=== PATIENT | female | born 1950 | race Caucasian/White ===

== ENCOUNTER 2019-12-18 11:04 | Outpatient (CLI) | payer MEDICARE, OTHER, SELFPAY ==
--- NOTE | 2019-12-18 11:09 | MM_ITS ---
WS: [id number] Bilateral screening digital mammogram, 12/18/2019 Clinical Data: SCREENING Comparison: 09/15/2018, 02/05/2018, 07/04/2017, 06/27/2017, 05/18/2016, 02/08/2015, 01/18/2014, 08/10/2011, , 04/29/2008. Findings: The breast parenchymal pattern shows fibroglandular tissue. No spiculated masses or clustered calcifi cations are seen. There are no secondary signs of carcinoma. MM/[id number] Impression: 1. Negative bilateral mammogram unchanged. 2. Recommend annual screening mammograms. BIRADS: 1-Negative FOLLOW UP: 1 Year Follow-up The CAD specifications checker was used.
== END 2019-12-18 11:05 | disposition home or self-care (01) ==
LOC: RADSHAW 11:04
PROVIDERS: PCP Nurse Practitioner Family; Visit Provider Nurse Practitioner Family
DX: Z12.31 Encounter for screening mammogram for malignant neoplasm of breast (principal)
CPT/HCPCS: 77067

== ENCOUNTER → 2020-01-30 11:28 | Outpatient (BNVA) | payer MEDICARE, OTHER, SELFPAY | PROVIDERS: PCP Nurse Practitioner Family; Visit Provider Emergency Medicine | DX: Z20.828 Contact with and (suspected) exposure to other viral communicable diseases (principal) | CPT/HCPCS: 87635 ==

== ENCOUNTER → 2020-02-18 08:20 | Outpatient (BNVA) | payer MEDICARE, OTHER, SELFPAY | PROVIDERS: PCP Nurse Practitioner Family; Visit Provider Nurse Practitioner Family | DX: E55.9 Vitamin D deficiency, unspecified (principal); Z79.899 Other long term (current) drug therapy; R03.0 Elevated blood-pressure reading, without diagnosis of hypertension; R53.83 Other fatigue; E78.2 Mixed hyperlipidemia | CPT/HCPCS: 80053; 80061; 81003; 82306; 83036; 84443; 85025 ==

== ENCOUNTER → 2020-03-02 08:53 | Outpatient (BNVA) | payer MEDICARE, OTHER, SELFPAY | PROVIDERS: PCP Nurse Practitioner Family; Visit Provider Nurse Practitioner Family | DX: N39.0 Urinary tract infection, site not specified (principal) | CPT/HCPCS: 81003 ==

== ENCOUNTER 2021-07-06 11:39 | Outpatient (CLI) | payer MEDICARE, OTHER, SELFPAY ==
--- NOTE | 2021-07-06 11:56 | MM_ITS ---
WS: [id number] BILATERAL 3D TOMOSYNTHESIS DIGITAL SCREENING MAMMOGRAPHY WITH CAD CLINICAL INFORMATION: SCREENING HISTORY: Screening mammogram. No current complaints. COMPARISON: December 18, 2019 TECHNIQUE: Bilateral CC and MLO views. FINDINGS: Scattered fibroglandular densities bilaterally. Vascular calcification. A few incidental punctate and clustered calcifications. No suspicious focal mass, asymmetry, calcifications, or architectural dist ortion. No evidence of malignancy. MM/[place] [id number] IMPRESSION: BI-RADS: 2-Benign FOLLOW UP: 1 Year Follow-up Recommend return to annual screening mammography.
== END 2021-07-06 11:40 | disposition home or self-care (01) ==
LOC: RADSHAW 11:42
PROVIDERS: PCP Nurse Practitioner Family; Visit Provider Nurse Practitioner Family
DX: Z12.31 Encounter for screening mammogram for malignant neoplasm of breast (principal)
CPT/HCPCS: 77063; 77067

== ENCOUNTER 2021-10-13 06:26 | Day surgery (SDC) | payer MEDICARE, OTHER, SELFPAY ==
[2021-10-11 09:38] VITALS: BMI 28.3
[2021-10-13 06:50] VITALS: BP 136/56; PULSE 58; RESP 18; TEMP 36.2; O2SAT 98
[2021-10-13] MEDS: sodium chloride 0.9% 1,000 ML 30 ML IV (07:00)
--- NOTE | 2021-10-13 07:56 | ANES.PREANE2 ---
Pre-Anesthetic Assessment Height/Weight: Height 1.57 m Weight 70.307 kg Temp Pulse Resp BP Pulse Ox O2 Del Method 97.2 F L 58 L 18 136/56 98 10/13/21 06:50 10/13/21 06:50 10/13/21 06:50 10/13/21 06:50 10/13/21 06:50 10/13/21 06:50 Operation Date: 10/13/21 08:00 Proposed Procedures p Colonoscopy 68068,Z86.010,Z80.0(Not Applicable) - Darrick Barnes MD Familial anesthetic complications: None Was Beta Kristi taken within 24 hours: N/A Was Clonidine taken within 24 hours: N/A Last intake: Intake Last Liquid Date 10/12/21 Last Liquid Time 19:30 Last Solid Date 10/11/21 Last Solid Time 18:00 Social No alcohol and No tobacco Exam alert, oriented x 3, clear to auscultation bilaterally and regular rate & rhythm Airway Submandibular: within normal limits Cervical ROM: within normal limits Mallampati: Class I Dentition: full Comments: Comments: Multiple caps/crowns History/ROS No significant complaints Pulmonary None reported CV/HEM None reported None reported Hepatic None reported GI None reported Metabolic None reported Musc/skel None reported Neuropsych None reported Anesthetic Plan ASA status: 1 Anesthesia: Anesthesia Evaluation, General and MAC Other: I discussed with the patient risks, goals, and benefits of MAC and general anesthesia. We discussed spectrum of MAC anesthesia including conversion to general as well as possibility of recall of intraoperative stimuli including discomfort/pain. Patient agrees to proceed with MAC. Risk of > 500 ml blood loss (7ml/kg in children): No Medications/Allergies Home Medications Medication Instructions Recorded Confirmed Last Taken Type Multi Vitamin 1 tab PO DAILY 10/11/21 10/13/21 10/12/21 History Vitamin D (with calcium) 1 tab PO DAILY 10/11/21 10/13/21 10/12/21 History lutein 1 tab PO DAILY 10/11/21 10/13/21 10/12/21 History magnesium 1 tab PO DAILY 10/11/21 10/13/21 10/12/21 History Allergies Allergy/AdvReac Type Severity Reaction Status Date / Time No Known Allergies Allergy Verified 10/13/21 06:48 Current Medications Generic Name Dose Route Start Last Admin Trade Name Freq PRN Reason Stop Dose Admin Sodium Chloride 1,000 mls @ 30 mls/hr 10/13/21 06:45 10/13/21 07:00 Sodium Chloride 0.9% IV 10/14/21 06:44 30 mls/hr .Q24H PEYTON Administration PFSH Anesthesia Medical History Elevated blood pressure reading in office with white coat syndrome, without diagnosis of hypertension Fatigue Medicare annual wellness visit, initial Vitamin D deficiency Surgical History H/O: hysterectomy Social History Smoking and tobacco status: never smoked Alcohol intake: never Female Reproductive History Spontaneous abortions: No Data Anesthesia Cardiac Studies: No Data to Display
--- NOTE | 2021-10-13 09:03 | W.PM.OPSUD ---
Surgery/Procedure H&P Update DATE OF PROCEDURE: October 13, 2021 DATE H&P PERFORMED: 09/13/21 CHANGES TO PREVIOUS DOCUMENTATION: None PRIMARY INDICATION FOR PROCEDURE: Screening colonoscopy PLANNED PROCEDURE: Operation Date: 10/13/21 08:00 Proposed Procedures p Colonoscopy [id number],Z86.010,Z80.0(Not Applicable) - Darrick Barnes MD
[2021-10-13 09:27] VITALS: BP 105/48; PULSE 49; RESP 16; TEMP 36.1; O2SAT 99
[2021-10-13 09:37] VITALS: BP 115/47; PULSE 53; RESP 16; O2SAT 99
--- NOTE | 2021-10-13 12:21 | ANE.PACU2 ---
Inpatient post-anesthesia follow up: Airway intact: Yes Vital signs: Temperature 97 F Pulse Rate 53 Respiratory Rate 16 Blood Pressure 115/47 Pulse Oximetry 99 Oxygen Delivery Me thod Room Air Oxygen Flow Rate Fraction of Inspir ed Oxygen Hydration adequate: Yes Nausea and vomiting: No Pain level: 1 Mental status: Baseline
== END 2021-10-13 09:45 | disposition home or self-care (01) ==
PROVIDERS: PCP Electrodiagnostic Medicine; Visit Provider Family Medicine
PROC: 0DJD8ZZ Inspection of Lower Intestinal Tract, Via Natural or Artificial Opening Endoscopic (ICD-10-PCS; CPT 45378; principal; 2021-10-13 08:00)
DX: Z12.11 Encounter for screening for malignant neoplasm of colon (principal); Z86.010 Personal history of colon polyps; Z80.0 Family history of malignant neoplasm of digestive organs; E55.9 Vitamin D deficiency, unspecified
CPT/HCPCS: 12345; 45378; J2704; J7030

== ENCOUNTER 2022-09-28 11:07 | Outpatient (CLI) | payer MEDICARE, OTHER, SELFPAY ==
--- NOTE | 2022-09-28 11:14 | MM_ITS ---
WS: [id number] VIEWS: MLO and CC views both breasts. 3D digital tomosynthesis is also included in this exam. Comparison made with prior exam of 06/27/2017, 02/05/2018, 09/15/2018, 12/18/2019, 07/06/2021.. Findings: There was no sign of mass, architectural distortion or suspicious calcification in either breast. Th ere are scattered areas of fibroglandular density MM/[place] [id number] Impression: BI-RADS: 2-Benign finding. FOLLOW-UP: 1 Year Follow-up This mammogram was also analyzed by the Computer Aided Detection System R2 Imag e Public Welfare Worker.
== END 2022-09-28 11:08 | disposition home or self-care (01) ==
PROVIDERS: PCP Electrodiagnostic Medicine; Visit Provider Electrodiagnostic Medicine
DX: Z12.31 Encounter for screening mammogram for malignant neoplasm of breast (principal)
CPT/HCPCS: 77063; 77067

== ENCOUNTER → 2022-10-29 13:28 | Outpatient (BNVA) | payer MEDICARE, OTHER, SELFPAY | PROVIDERS: PCP Electrodiagnostic Medicine; Visit Provider Podiatrist Foot & Ankle Surgery | DX: G57.61 Lesion of plantar nerve, right lower limb; M89.8X7 Other specified disorders of bone, ankle and foot | CPT/HCPCS: 73630; 99203 ==

== ENCOUNTER 2022-11-08 08:01 | Outpatient (CLI) | payer MEDICARE, OTHER, SELFPAY ==
--- NOTE | 2022-11-08 08:15 | US_ITS ---
WS: [id number] ULTRASOUND SOFT TISSUES RIGHT foot HISTORY: to rule out Babin's neuroma at right second interspace and COMPARISON: None available. TECHNIQUE: 2-D and color Doppler imaging is submitted. Ultrasound is directed between the first and second and second and third interspaces. No soft tissue masses identified. No abnormalities seen. No fluid adjacent to the metatarsal head. IMPRESSION: Negative ultrasound second interspace.
== END 2022-11-08 08:02 | disposition home or self-care (01) ==
LOC: RAD 08:04
PROVIDERS: PCP Electrodiagnostic Medicine; Visit Provider Podiatrist Foot & Ankle Surgery
DX: G57.61 Lesion of plantar nerve, right lower limb (principal); M79.671 Pain in right foot; M89.8X7 Other specified disorders of bone, ankle and foot
CPT/HCPCS: 76882

== ENCOUNTER → 2023-01-08 13:02 | Outpatient (BNVA) | payer MEDICARE, OTHER, SELFPAY | PROVIDERS: PCP Electrodiagnostic Medicine; Visit Provider Podiatrist Foot & Ankle Surgery | DX: M89.8X7 Other specified disorders of bone, ankle and foot (principal); M77.41 Metatarsalgia, right foot | CPT/HCPCS: 99213 ==

== ENCOUNTER 2023-02-28 15:17 | Outpatient (CLI) | payer MEDICARE, OTHER, SELFPAY | END 2023-02-28 15:18 | disposition home or self-care (01) | LOC: SPT 15:18 | PROVIDERS: PCP Electrodiagnostic Medicine; Visit Provider Podiatrist Foot & Ankle Surgery | DX: Z46.89 Encounter for fitting and adjustment of other specified devices (principal); M89.8X7 Other specified disorders of bone, ankle and foot; M79.671 Pain in right foot; M77.40 Metatarsalgia, unspecified foot | CPT/HCPCS: 97760; L3030 ==

== ENCOUNTER 2024-05-08 09:36 | Outpatient (CLI) | payer MEDICARE, OTHER, SELFPAY ==
--- NOTE | 2024-05-08 09:42 | MM_ITS ---
WS: [id number] BILATERAL SCREENING DIGITAL TOMOSYNTHESIS MAMMOGRAM WITH CAD HISTORY: SCREENING COMPARISON: 09/28/2022, 07/06/2021 Bilateral CC and MLO views with tomosynthesis and synthetic mammography submitted. Computer aided detection analyzed. Breast composition: There are scattered areas of fibroglandular density. No suspicious masses, microcalcifications or architectural distortion. Benign calcifications in each breast are stable. Arterial calcifications. MM/MM scr BI tomosynthesis [id number] IMPRESSION: BI-RADS: 2 - Benign. FOLLOW UP: 1 Year Follow-up
== END 2024-05-08 09:37 | disposition home or self-care (01) ==
LOC: RAD 09:37
PROVIDERS: PCP Electrodiagnostic Medicine; Visit Provider Electrodiagnostic Medicine
DX: Z12.31 Encounter for screening mammogram for malignant neoplasm of breast (principal); R92.323 Mammographic fibroglandular density, bilateral breasts; R92.1 Mammographic calcification found on diagnostic imaging of breast
CPT/HCPCS: 77063; 77067